=== PATIENT | female | born 1995 | race Caucasian/White ===

== ENCOUNTER 2018-11-03 19:37 | Inpatient (IN) ==
[2018-11-03] MEDS ORDERED: OXYTOCIN 30 UNITS/500 ML BAG IV PRN (21:11)
[2018-11-03 21:34] LABS: Hematocrit (blood only) 36.9 % (37-47); Mean Corpuscular Volume 95.1 fL (80-100); Mean Platelet Volume 10.7 fL (7.4-10.4); Platelet Count 226 K/uL (130-400); RDW Coefficient of Variation 14.5 % (11.5-14.5); RDW Standard Deviation 50.3 fL (36.4-46.3); Red Blood Count 3.88 M/uL (4.2-5.4)
[2018-11-03 21:37] LABS: Mean Corpuscular Hgb Conc 35.2 g/dL (32-36)
[2018-11-03] MEDS ORDERED: NALOXONE HCL 0.4 MG/1 ML VIAL/CARP IV PRN (23:09)
[2018-11-03] MEDS ORDERED: NALBUPHINE HCL INJ 10 MG/ML AMP IV PRN (23:09)
[2018-11-03] MEDS ORDERED: fentaNYL 2MCG/ML ROPIV 1.25MG/ML 100 ML BAG EPI PRN (23:09)
[2018-11-03] MEDS ORDERED: DiphenhydrAMINE HCL 50 MG/ML VIAL IV PRN (23:09)
[2018-11-03] MEDS ORDERED: NALOXONE HCL 1 MG in SODIUM CHLORIDE 0.9% 1000ML 1,000 ML IV PRN (23:09)
[2018-11-03] MEDS ORDERED: ePHEDrine sulfate 50 MG/ML AMP IV PRN (23:09)
[2018-11-03] MEDS ORDERED: ONDANSETRON INJ 2 MG/ML 2 ML VIAL IV PRN (23:09)
[2018-11-03] MEDS: LACTATED RINGER'S 1,000 ML IV PRN (23:10)
--- NOTE | 2018-11-03 23:11 | Anesthesiology Consultation ---
Date of Service November 03, 2018 Assessment & Plan (1) Encounter for pre-operative examination: Chart Review Chart Review: Patient NOT seen in Pre Admission Testing and Acceptable Risk for Labor Epidural Consults Requested none History Height/Weight Height: 5 ft 2 in Weight: 64.864 kg Allergies Allergy/AdvReac Type Severity Reaction Status Date / Time No Known Drug Allergies Allergy Verified 10/29/18 07:56 Medications Home Medications Medication Instructions Recorded Confirmed Last Taken vit-iron fum-folic ac 1 tab PO DAILY 11/03/18 11/03/18 11/03/18 08:00 [ Vitamin] Active Medications Generic Name Dose Route Start Last Admin Trade Name Freq PRN Reason Stop Dose Admin Lactated Ringer's 1,000 mls @ 125 mls/hr 11/03/18 21:11 11/03/18 23:10 Lr IV 11/05/18 21:10 999 mls/hr .Q8H PRN Administration L&D Protocol Protocol Past Medical History Medical History History of elective History of ovarian cyst History of varicella Exercise / Class Metabolic Activity II 4-5 Yardwork/Stairs/Walk up hill Past Surgical History Surgical History No history of previous surgery Past Anesthesia History No Hx of Anesthesia Complications and No Family Hx of Anesthesia Complications History of PONV No Hx of PONV and No Hx of Motion Sickness Social History Smoking Status: Never smoker Do You Dip or Chew Tobacco: No Hx Alcohol Use: No Hx Substance Use: No Physical Exam Vital Signs Last Vital Signs Temp 36.5 C 11/03/18 19:56 Pulse 89 11/03/18 19:53 Resp 18 11/03/18 19:56 BP 118/74 11/03/18 19:53 Testing Laboratory Results 11/03/18 21:21
[2018-11-03] MEDS ORDERED: ePHEDrine sulfate 50 MG/ML AMP ONE (23:12)
[2018-11-03] MEDS ORDERED: BUPIVACAINE 0.25% 30 ML VIAL ONE (23:12)
[2018-11-03] MEDS ORDERED: fentaNYL citrate 100 MCG/2 ML VIAL ONE (23:13)
[2018-11-03] MEDS ORDERED: fentaNYL 2MCG/ML ROPIV 1.25MG/ML 100 ML BAG EPI ONE (23:14)
--- NOTE | 2018-11-03 23:45 | History & Physical Report ---
Date of Service November 03, 2018 Assessment & Plan (1) Transverse lie of fetus: Long discussion of options. Discussed the possiblity of attempt at version. r/b/se of this discussed: bleeding, arom, nrfht, need for urgent c/s. Discussed proceeding with c/s. r/b/se discussed: bleeding, transfusion, damage to surrounding structures, need for further surgery, injury to baby. After discussion. Plan to proceed with version. Consent reviewed and signed. c/s consent also reviewed and signed. If successful, plan epidural and then controlled arom. Patient and agreeable. (2) Normal labor: History of Present Illness Chief Complaint: contractions Primary Care Provider: NO PCP Patient is a who presents to labor and delivery at 40 weeks with contractions. No lof/vb. +fm. Baby has been VERY active! has been uncomplicated. 37 week transfer from [facility] because her now works for [employer]--A+/ab-/pap nl/ri/rprnr/hepb-/hiv-/gc/ct-/28 week gtt nl/gbs neg. Allergies Allergy/AdvReac Type Severity Reaction Status Date / Time No Known Drug Allergies Allergy Verified 10/29/18 07:56 Home Medications Home Medications Medication Instructions Recorded Confirmed Type vit-iron fum-folic ac 1 tab PO DAILY 11/03/18 11/03/18 History [ Vitamin] Patient History Medical History History of elective History of ovarian cyst History of varicella Surgical History No history of previous surgery Social History Preferred Language: Persian Communication Ability: Effective Beliefs That Will Affect Care: None marital status: Current Living Situation: Spouse Feels Safe at Home: Yes Safety Concerns: Feels Safe At This Time Smoking Status: Never smoker Do You Dip or Chew Tobacco: No ; Hx Alcohol Use: No Hx Substance Use: No OB History g1--02/09, , 6#11oz 05/16--eab [employer] History none Physical Exam Constitutional: WD/WN, vitals as above Gastrointestinal (Abdomen): soft, gravid, nt baby appears transverse US--baby transverse, back up, head on left Genitourinary: cx--/-2 toco--not really picking up contractions efm--category one fetus Results & Data Vital Signs (Past 12 Hours) Vital Signs Temp Pulse Resp BP Pulse Ox 11/03/18 23:33 77 121/71 11/03/18 23:30 95 H 98 11/03/18 23:29 77 132/75 11/03/18 23:26 82 131/83 11/03/18 23:25 83 99 11/03/18 23:23 74 125/79 11/03/18 23:20 80 99 11/03/18 23:19 88 124/75 11/03/18 23:15 78 92 11/03/18 19:56 36.5 C 18 11/03/18 19:53 89 118/74
--- NOTE | 2018-11-03 23:48 | Post Operative Brief Note ---
PG Immediate Post Op with CF Date of Surgery November 03, 2018 Pre & Post Diagnosis pre-op: transverse lie post-op: same Procedure External cephalic version Surgeon Veronika Young MD, FACOG Cap Machine Operator none Estimated Blood Loss 0 Findings Consistent with Post-Op Diagnosis fetus transverse, back up, head to maternal left after procedure, fetus vertex. Fluids none Specimens Specimen Description: none Anesthesia Type None Disposition Disposition: L&D
--- NOTE | 2018-11-03 23:54 | Labor Progress Brief Note ---
Date of Service November 03, 2018 Subjective patient consents to attempt at ECV Assessment & Plan (1) Normal labor: now cephalic. Will get epidural and once comfortable, plan arom. fetus reassuring. Physical Exam Physical Exam: Cerix checked and was 4-5/100/-2, no presenting part. Patient placed flat in the bed with arms above head. Ultrasound confirmed transverse lie, back up, head on maternal left. I placed gentle, constant pressure on the head and on the bottom and the head was brought into the pelvis. FHT reassuring after the procedure. toco--now picking up q2-3 efm--130s wtih mod variability, accels present, no decels Results & Data Vital Signs (Past 12 Hours) Vital Signs Temp Pulse Resp BP Pulse Ox 11/03/18 23:47 69 98/54 L 11/03/18 23:45 71 99 11/03/18 23:44 69 100/57 L 11/03/18 23:41 67 105/59 L 11/03/18 23:40 77 100 11/03/18 23:38 71 101/58 L 11/03/18 23:35 75 110/66 100 11/03/18 23:33 77 121/71 11/03/18 23:30 95 H 98 11/03/18 23:29 77 132/75 11/03/18 23:26 82 131/83 11/03/18 23:25 83 99 11/03/18 23:23 74 125/79 11/03/18 23:20 80 99 11/03/18 23:19 88 124/75 11/03/18 23:15 78 92 11/03/18 19:56 36.5 C 18 11/03/18 19:53 89 118/74
[2018-11-04] MEDS: LACTATED RINGER'S 1,000 ML IV PRN ×3 (00:18→10:41)
--- NOTE | 2018-11-04 00:23 | Labor Progress Brief Note ---
Date of Service November 04, 2018 Subjective comfortable after epidural Assessment & Plan (1) Normal labor: arom. continue current management. anticipate . Physical Exam Constitutional: WD/WN, vitals as above Genitourinary: us confirms still cephalic cx--/-2 arom with fundal pressure for copious amounts of clear fluid toco--q2-4min efm--category one fse placed so can monitor and see if it moves in could be changing position. Results & Data Vital Signs (Past 12 Hours) Vital Signs Temp Pulse Resp BP Pulse Ox 11/04/18 00:17 65 112/63 11/04/18 00:15 72 98 11/04/18 00:14 81 118/72 11/04/18 00:11 81 124/70 11/04/18 00:10 96 H 99 11/04/18 00:08 70 109/64 11/04/18 00:05 81 108/66 99 11/04/18 00:02 80 106/65 11/04/18 00:00 77 99 11/03/18 23:59 73 110/61 11/03/18 23:56 77 106/59 L 11/03/18 23:55 76 99 11/03/18 23:53 79 99/64 L 11/03/18 23:50 70 103/59 L 100 11/03/18 23:47 69 98/54 L 11/03/18 23:45 71 99 11/03/18 23:44 69 100/57 L 11/03/18 23:41 67 105/59 L 11/03/18 23:40 77 100 11/03/18 23:38 71 101/58 L 11/03/18 23:35 75 110/66 100 11/03/18 23:33 77 121/71 11/03/18 23:30 95 H 98 11/03/18 23:29 77 132/75 11/03/18 23:26 82 131/83 11/03/18 23:25 83 99 11/03/18 23:23 74 125/79 11/03/18 23:20 80 99 11/03/18 23:19 88 124/75 11/03/18 23:15 78 92 11/03/18 19:56 36.5 C 18 11/03/18 19:53 89 118/74
[2018-11-04] MEDS ORDERED: OXYTOCIN 30 UNITS/500 ML BAG IV PRN ×2 (02:40→12:01)
--- NOTE | 2018-11-04 02:40 | Labor Progress Brief Note ---
Date of Service November 04, 2018 Subjective comfortable Assessment & Plan (1) Normal labor: augment with pitocin. fetus category one. Physical Exam Constitutional: WD/WN, vitals as above Genitourinary: cx--unchanged toco--q4-6 efm--130s with mod varibility, +scalp stim, + accels, no decels Results & Data Vital Signs (Past 12 Hours) Vital Signs Temp Pulse Resp BP Pulse Ox 11/04/18 02:35 80 111/59 L 99 11/04/18 02:32 71 109/56 L 11/04/18 02:30 89 105/58 L 99 11/04/18 02:26 67 114/63 11/04/18 02:25 103 H 99 11/04/18 02:23 66 114/63 11/04/18 02:20 65 113/63 98 11/04/18 02:18 68 110/54 L 11/04/18 02:15 74 98 11/04/18 02:14 83 112/58 L 11/04/18 02:11 70 115/61 11/04/18 02:10 81 98 11/04/18 02:08 65 114/63 11/04/18 02:05 77 107/59 L 99 11/04/18 02:02 89 106/56 L 11/04/18 02:00 36.6 C 67 99 11/04/18 01:59 74 107/55 L 11/04/18 01:56 72 104/55 L 11/04/18 01:55 75 99 11/04/18 01:53 85 99/58 L 11/04/18 01:50 95 H 105/57 L 100 11/04/18 01:47 63 113/63 11/04/18 01:45 73 99 11/04/18 01:44 63 110/60 11/04/18 01:41 72 104/56 L 11/04/18 01:40 68 99 11/04/18 01:38 64 107/56 L 11/04/18 01:35 64 106/59 L 99 11/04/18 01:32 60 109/60 11/04/18 01:30 65 99 11/04/18 01:29 66 106/55 L 11/04/18 01:26 81 109/55 L 11/04/18 01:25 69 99 11/04/18 01:23 75 103/59 L 11/04/18 01:20 79 99/55 L 99 11/04/18 01:17 74 104/58 L 11/04/18 01:15 71 99 11/04/18 01:14 64 102/53 L 11/04/18 01:11 57 L 106/55 L 11/04/18 01:10 74 100 11/04/18 01:08 85 99/60 L 11/04/18 01:05 69 99/54 L 100 11/04/18 01:02 72 100/54 L 11/04/18 01:00 76 98 11/04/18 00:59 64 102/51 L 11/04/18 00:56 81 113/60 11/04/18 00:55 63 99 11/04/18 00:53 71 106/57 L 11/04/18 00:50 79 110/60 99 11/04/18 00:47 78 109/67 11/04/18 00:45 81 99 11/04/18 00:44 62 109/60 11/04/18 00:41 83 109/66 11/04/18 00:40 36.6 C 91 H 99 11/04/18 00:38 61 112/63 11/04/18 00:35 89 111/64 99 11/04/18 00:32 71 106/61 11/04/18 00:30 70 99 11/04/18 00:29 70 112/64 11/04/18 00:26 63 111/62 11/04/18 00:25 65 99 11/04/18 00:23 64 117/64 11/04/18 00:20 72 115/65 99 11/04/18 00:17 65 112/63 11/04/18 00:15 72 98 11/04/18 00:14 81 118/72 11/04/18 00:11 81 124/70 11/04/18 00:10 96 H 99 11/04/18 00:08 70 109/64 11/04/18 00:05 81 108/66 99 11/04/18 00:02 80 106/65 11/04/18 00:00 77 99 11/03/18 23:59 73 110/61 11/03/18 23:56 77 106/59 L 11/03/18 23:55 76 99 08/08/19 23:53 79 99/64 L 11/03/18 23:50 70 103/59 L 100 11/03/18 23:47 69 98/54 L 11/03/18 23:45 71 99 11/03/18 23:44 69 100/57 L 11/03/18 23:41 67 105/59 L 11/03/18 23:40 77 100 11/03/18 23:38 71 101/58 L 11/03/18 23:35 75 110/66 100 11/03/18 23:33 77 121/71 11/03/18 23:30 95 H 98 11/03/18 23:29 77 132/75 11/03/18 23:26 82 131/83 11/03/18 23:25 83 99 11/03/18 23:23 74 125/79 11/03/18 23:20 80 99 11/03/18 23:19 88 124/75 11/03/18 23:15 78 92 11/03/18 19:56 36.5 C 18 11/03/18 19:53 89 118/74
--- NOTE | 2018-11-04 08:35 | Obstetrical Progress Note ---
Date of Service November 04, 2018 Assessment & Plan (1) Encounter for supervision of normal in multigravida in third trimester: (2) Transverse lie of fetus: cephalic on exam, pit at 16 iupc placed and elevated mvus. will back down on pit and see if variables improve, categ 2 tracing. concern would be that cx may not change given mvu's more than adeq now and cx has not changed. pt and spouse aware of plan and concerns. Subjective comfortable with epidural Physical Exam Constitutional: WD/WN, vitals as above Genitourinary: Manual OB Exam: + cervical dilation 5 cm, + cervical effacement 80% and + station -2 OB Exam Monitor Tracing: + scalp electrode used (140 moderate variability, variables, spont accels), + external uterine monitor used (q3), + intra-uterine pressure catheter used (placed) and + category II pit at 16 Results & Data Vital Signs (Past 12 Hours) Vital Signs Temp Pulse Resp BP Pulse Ox 11/04/18 08:30 73 99 11/04/18 08:25 93 H 100 11/04/18 08:22 82 125/77 11/04/18 08:20 78 100 11/04/18 08:15 73 99 11/04/18 08:10 79 98 11/04/18 08:08 70 105/61 11/04/18 08:05 71 98 11/04/18 08:00 73 99 11/04/18 07:59 20 11/04/18 07:55 66 99 11/04/18 07:52 66 105/56 L 11/04/18 07:50 65 99 11/04/18 07:45 69 99 11/04/18 07:40 67 98 11/04/18 07:39 68 100/53 L 11/04/18 07:35 68 99 11/04/18 07:33 97.9 F 20 11/04/18 07:30 60 99 11/04/18 07:25 69 98 11/04/18 07:24 72 110/60 11/04/18 07:20 69 98 11/04/18 07:15 80 98 11/04/18 07:10 78 98 11/04/18 07:08 75 130/55 L 11/04/18 07:05 76 98 11/04/18 07:00 75 99 11/04/18 06:55 83 99 08/09/19 06:52 76 120/67 11/04/18 06:50 78 99 11/04/18 06:45 90 98 11/04/18 06:40 86 99 11/04/18 06:37 83 120/68 11/04/18 06:35 84 100 11/04/18 06:30 92 H 99 11/04/18 06:25 91 H 99 11/04/18 06:22 76 117/66 11/04/18 06:20 78 100 11/04/18 06:15 77 100 11/04/18 06:10 80 100 11/04/18 06:07 88 111/65 11/04/18 06:05 74 99 11/04/18 06:00 78 100 11/04/18 05:55 82 99 11/04/18 05:52 78 112/65 11/04/18 05:50 70 99 11/04/18 05:45 74 100 11/04/18 05:40 75 100 11/04/18 05:38 82 121/73 11/04/18 05:35 76 100 11/04/18 05:30 81 100 11/04/18 05:25 76 100 11/04/18 05:22 78 112/67 11/04/18 05:20 71 99 11/04/18 05:15 96 H 99 11/04/18 05:10 72 99 11/04/18 05:08 88 112/66 11/04/18 05:05 90 99 11/04/18 05:00 93 H 99 11/04/18 04:55 83 99 11/04/18 04:52 67 115/66 11/04/18 04:50 69 99 11/04/18 04:45 77 100 11/04/18 04:40 81 99 11/04/18 04:37 83 107/61 11/04/18 04:35 85 99 11/04/18 04:30 101 H 98 11/04/18 04:25 92 H 99 11/04/18 04:23 74 106/58 L 11/04/18 04:20 72 99 11/04/18 04:15 81 99 11/04/18 04:10 69 99 11/04/18 04:07 68 119/68 11/04/18 04:05 67 100 11/04/18 04:00 78 99 11/04/18 03:55 68 98 11/04/18 03:52 89 111/64 11/04/18 03:50 70 99 11/04/18 03:45 68 99 11/04/18 03:40 72 99 11/04/18 03:37 71 105/64 11/04/18 03:35 83 99 11/04/18 03:30 98.6 F 84 99 11/04/18 03:25 70 99 11/04/18 03:22 70 110/69 11/04/18 03:20 77 99 11/04/18 03:15 73 99 11/04/18 03:10 90 99 11/04/18 03:07 75 117/68 11/04/18 03:05 68 100 11/04/18 03:00 73 100 11/04/18 02:55 94 H 99 11/04/18 02:53 75 108/61 11/04/18 02:50 88 100 11/04/18 02:45 73 100 11/04/18 02:40 87 100 11/04/18 02:35 80 111/59 L 99 11/04/18 02:32 71 109/56 L 11/04/18 02:30 89 105/58 L 99 11/04/18 02:26 67 114/63 11/04/18 02:25 103 H 99 11/04/18 02:23 66 114/63 11/04/18 02:20 65 113/63 98 11/04/18 02:18 68 110/54 L 11/04/18 02:15 74 98 11/04/18 02:14 83 112/58 L 11/04/18 02:11 70 115/61 11/04/18 02:10 81 98 11/04/18 02:08 65 114/63 11/04/18 02:05 77 107/59 L 99 11/04/18 02:02 89 106/56 L 11/04/18 02:00 97.9 F 67 99 11/04/18 01:59 74 107/55 L 11/04/18 01:56 72 104/55 L 11/04/18 01:55 75 99 11/04/18 01:53 85 99/58 L 11/04/18 01:50 95 H 105/57 L 100 11/04/18 01:47 63 113/63 11/04/18 01:45 73 99 11/04/18 01:44 63 110/60 11/04/18 01:41 72 104/56 L 11/04/18 01:40 68 99 11/04/18 01:38 64 107/56 L 11/04/18 01:35 64 106/59 L 99 11/04/18 01:32 60 109/60 11/04/18 01:30 65 99 11/04/18 01:29 66 106/55 L 11/04/18 01:26 81 109/55 L 11/04/18 01:25 69 99 11/04/18 01:23 75 103/59 L 11/04/18 01:20 79 99/55 L 99 11/04/18 01:17 74 104/58 L 11/04/18 01:15 71 99 11/04/18 01:14 64 102/53 L 11/04/18 01:11 57 L 106/55 L 11/04/18 01:10 74 100 11/04/18 01:08 85 99/60 L 11/04/18 01:05 69 99/54 L 100 11/04/18 01:02 72 100/54 L 11/04/18 01:00 76 98 11/04/18 00:59 64 102/51 L 11/04/18 00:56 81 113/60 11/04/18 00:55 63 99 11/04/18 00:53 71 106/57 L 11/04/18 00:50 79 110/60 99 11/04/18 00:47 78 109/67 11/04/18 00:45 81 99 11/04/18 00:44 62 109/60 11/04/18 00:41 83 109/66 11/04/18 00:40 97.9 F 91 H 99 11/04/18 00:38 61 112/63 11/04/18 00:35 89 111/64 99 11/04/18 00:32 71 106/61 11/04/18 00:30 70 99 11/04/18 00:29 70 112/64 11/04/18 00:26 63 111/62 11/04/18 00:25 65 99 11/04/18 00:23 64 117/64 11/04/18 00:20 72 115/65 99 11/04/18 00:17 65 112/63 11/04/18 00:15 72 98 11/04/18 00:14 81 118/72 11/04/18 00:11 81 124/70 11/04/18 00:10 96 H 99 11/04/18 00:08 70 109/64 11/04/18 00:05 81 108/66 99 11/04/18 00:02 80 106/65 11/04/18 00:00 77 99 11/03/18 23:59 73 110/61 11/03/18 23:56 77 106/59 L 11/03/18 23:55 76 99 11/03/18 23:53 79 99/64 L 11/03/18 23:50 70 103/59 L 100 11/03/18 23:47 69 98/54 L 11/03/18 23:45 71 99 11/03/18 23:44 69 100/57 L 11/03/18 23:41 67 105/59 L 11/03/18 23:40 77 100 11/03/18 23:38 71 101/58 L 11/03/18 23:35 75 110/66 100 11/03/18 23:33 77 121/71 11/03/18 23:30 95 H 98 11/03/18 23:29 77 132/75 11/03/18 23:26 82 131/83 11/03/18 23:25 83 99 11/03/18 23:23 74 125/79 11/03/18 23:20 80 99 11/03/18 23:19 88 124/75 11/03/18 23:15 78 92 PG Care Time/CCT Total # of Minutes Spent Total Time Spent with Patient: Total time spent is greater than 50% in coordination of care (as documented) at patient's floor/unit and/or counseling patient:
--- NOTE | 2018-11-04 10:42 | Labor Progress Brief Note ---
Date of Service November 04, 2018 Subjective patient comfortable. Assessment & Plan (1) Encounter for supervision of normal in multigravida in third trimester: will begin 2nd stage soon. pit at 2. categ 2 fhts Physical Exam Constitutional: WD/WN, vitals as above Genitourinary: Manual OB Exam: + cervical dilation 9 cm, + cervical effacement 100% and + station + 1 OB Exam Monitor Tracing: + scalp electrode used (140 mod variability, variable decels), + external uterine monitor used (q3) and + category II Results & Data Vital Signs (Past 12 Hours) Vital Signs Temp Pulse Resp BP Pulse Ox 11/04/18 10:35 84 100 11/04/18 10:30 84 99 11/04/18 10:25 94 H 97 11/04/18 10:24 107 H 128/85 11/04/18 10:20 73 98 11/04/18 10:15 101 H 99 11/04/18 10:10 76 98 11/04/18 10:08 71 123/74 11/04/18 10:05 71 98 11/04/18 10:00 76 97 11/04/18 09:55 81 97 11/04/18 09:52 102 H 111/68 11/04/18 09:51 99.0 F 20 11/04/18 09:50 75 99 11/04/18 09:45 95 H 99 11/04/18 09:40 86 98 11/04/18 09:38 88 108/65 11/04/18 09:35 82 98 11/04/18 09:30 73 98 11/04/18 09:29 20 11/04/18 09:25 90 99 11/04/18 09:22 81 112/70 11/04/18 09:20 88 99 11/04/18 09:15 88 99 11/04/18 09:10 70 98 11/04/18 09:07 93 H 106/66 11/04/18 09:05 71 100 11/04/18 09:00 84 99 11/04/18 08:59 20 11/04/18 08:55 75 100 11/04/18 08:52 68 121/70 11/04/18 08:50 68 100 11/04/18 08:45 84 100 11/04/18 08:40 82 100 11/04/18 08:38 102 H 147/91 H 11/04/18 08:35 69 100 11/04/18 08:30 73 20 99 11/04/18 08:25 93 H 100 11/04/18 08:22 82 125/77 11/04/18 08:20 78 100 11/04/18 08:15 73 99 11/04/18 08:10 79 98 11/04/18 08:08 70 105/61 11/04/18 08:05 71 98 11/04/18 08:00 73 99 11/04/18 07:59 20 11/04/18 07:55 66 99 11/04/18 07:52 66 105/56 L 11/04/18 07:50 65 99 11/04/18 07:45 69 99 11/04/18 07:40 67 98 11/04/18 07:39 68 100/53 L 11/04/18 07:35 68 99 11/04/18 07:33 97.9 F 20 11/04/18 07:30 60 99 11/04/18 07:25 69 98 11/04/18 07:24 72 110/60 11/04/18 07:20 69 98 11/04/18 07:15 80 98 11/04/18 07:10 78 98 11/04/18 07:08 75 130/55 L 11/04/18 07:05 76 98 11/04/18 07:00 75 99 11/04/18 06:55 83 99 11/04/18 06:52 76 120/67 11/04/18 06:50 78 99 11/04/18 06:45 90 98 11/04/18 06:40 86 99 11/04/18 06:37 83 120/68 11/04/18 06:35 84 100 11/04/18 06:30 92 H 99 11/04/18 06:25 91 H 99 11/04/18 06:22 76 117/66 11/04/18 06:20 78 100 11/04/18 06:15 77 100 11/04/18 06:10 80 100 11/04/18 06:07 88 111/65 11/04/18 06:05 74 99 11/04/18 06:00 78 100 11/04/18 05:55 82 99 11/04/18 05:52 78 112/65 11/04/18 05:50 70 99 11/04/18 05:45 74 100 11/04/18 05:40 75 100 11/04/18 05:38 82 121/73 11/04/18 05:35 76 100 11/04/18 05:30 81 100 11/04/18 05:25 76 100 11/04/18 05:22 78 112/67 11/04/18 05:20 71 99 11/04/18 05:15 96 H 99 11/04/18 05:10 72 99 11/04/18 05:08 88 112/66 11/04/18 05:05 90 99 11/04/18 05:00 93 H 99 11/04/18 04:55 83 99 11/04/18 04:52 67 115/66 11/04/18 04:50 69 99 11/04/18 04:45 77 100 11/04/18 04:40 81 99 11/04/18 04:37 83 107/61 11/04/18 04:35 85 99 11/04/18 04:30 101 H 98 11/04/18 04:25 92 H 99 11/04/18 04:23 74 106/58 L 11/04/18 04:20 72 99 11/04/18 04:15 81 99 11/04/18 04:10 69 99 11/04/18 04:07 68 119/68 11/04/18 04:05 67 100 11/04/18 04:00 78 99 11/04/18 03:55 68 98 11/04/18 03:52 89 111/64 11/04/18 03:50 70 99 11/04/18 03:45 68 99 11/04/18 03:40 72 99 11/04/18 03:37 71 105/64 11/04/18 03:35 83 99 11/04/18 03:30 98.6 F 84 99 11/04/18 03:25 70 99 11/04/18 03:22 70 110/69 11/04/18 03:20 77 99 11/04/18 03:15 73 99 11/04/18 03:10 90 99 11/04/18 03:07 75 117/68 11/04/18 03:05 68 100 11/04/18 03:00 73 100 11/04/18 02:55 94 H 99 11/04/18 02:53 75 108/61 11/04/18 02:50 88 100 11/04/18 02:45 73 100 11/04/18 02:40 87 100 11/04/18 02:35 80 111/59 L 99 11/04/18 02:32 71 109/56 L 11/04/18 02:30 89 105/58 L 99 11/04/18 02:26 67 114/63 11/04/18 02:25 103 H 99 11/04/18 02:23 66 114/63 11/04/18 02:20 65 113/63 98 11/04/18 02:18 68 110/54 L 11/04/18 02:15 74 98 11/04/18 02:14 83 112/58 L 11/04/18 02:11 70 115/61 11/04/18 02:10 81 98 11/04/18 02:08 65 114/63 11/04/18 02:05 77 107/59 L 99 11/04/18 02:02 89 106/56 L 11/04/18 02:00 97.9 F 67 99 11/04/18 01:59 74 107/55 L 11/04/18 01:56 72 104/55 L 11/04/18 01:55 75 99 11/04/18 01:53 85 99/58 L 11/04/18 01:50 95 H 105/57 L 100 11/04/18 01:47 63 113/63 11/04/18 01:45 73 99 11/04/18 01:44 63 110/60 11/04/18 01:41 72 104/56 L 11/04/18 01:40 68 99 11/04/18 01:38 64 107/56 L 11/04/18 01:35 64 106/59 L 99 11/04/18 01:32 60 109/60 11/04/18 01:30 65 99 11/04/18 01:29 66 106/55 L 11/04/18 01:26 81 109/55 L 11/04/18 01:25 69 99 11/04/18 01:23 75 103/59 L 11/04/18 01:20 79 99/55 L 99 11/04/18 01:17 74 104/58 L 11/04/18 01:15 71 99 11/04/18 01:14 64 102/53 L 11/04/18 01:11 57 L 106/55 L 11/04/18 01:10 74 100 11/04/18 01:08 85 99/60 L 11/04/18 01:05 69 99/54 L 100 11/04/18 01:02 72 100/54 L 11/04/18 01:00 76 98 11/04/18 00:59 64 102/51 L 11/04/18 00:56 81 113/60 11/04/18 00:55 63 99 11/04/18 00:53 71 106/57 L 11/04/18 00:50 79 110/60 99 11/04/18 00:47 78 109/67 11/04/18 00:45 81 99 11/04/18 00:44 62 109/60 11/04/18 00:41 83 109/66 11/04/18 00:40 97.9 F 91 H 99 11/04/18 00:38 61 112/63 11/04/18 00:35 89 111/64 99 11/04/18 00:32 71 106/61 11/04/18 00:30 70 99 11/04/18 00:29 70 112/64 11/04/18 00:26 63 111/62 11/04/18 00:25 65 99 11/04/18 00:23 64 117/64 11/04/18 00:20 72 115/65 99 11/04/18 00:17 65 112/63 11/04/18 00:15 72 98 11/04/18 00:14 81 118/72 11/04/18 00:11 81 124/70 11/04/18 00:10 96 H 99 11/04/18 00:08 70 109/64 11/04/18 00:05 81 108/66 99 11/04/18 00:02 80 106/65 11/04/18 00:00 77 99 11/03/18 23:59 73 110/61 11/03/18 23:56 77 106/59 L 11/03/18 23:55 76 99 11/03/18 23:53 79 99/64 L 11/03/18 23:50 70 103/59 L 100 11/03/18 23:47 69 98/54 L 11/03/18 23:45 71 99 11/03/18 23:44 69 100/57 L 11/03/18 23:41 67 105/59 L 11/03/18 23:40 77 100 11/03/18 23:38 71 101/58 L 11/03/18 23:35 75 110/66 100 11/03/18 23:33 77 121/71 11/03/18 23:30 95 H 98 11/03/18 23:29 77 132/75 11/03/18 23:26 82 131/83 11/03/18 23:25 83 99 11/03/18 23:23 74 125/79 11/03/18 23:20 80 99 11/03/18 23:19 88 124/75 11/03/18 23:15 78 92
--- NOTE | 2018-11-04 10:50 | Labor Progress Brief Note ---
Date of Service November 04, 2018 Subjective feels back pain Assessment & Plan (1) Encounter for supervision of normal in multigravida in third trimester: 2nd stage. categ 2 fhts. pt pushing effectively. Physical Exam Constitutional: WD/WN, vitals as above Genitourinary: Manual OB Exam: + cervical dilation 10 cm, + cervical effacement 100% and + station + 3 OB Exam Monitor Tracing: + scalp electrode used (140 mod variability variable decels), + external uterine monitor used (q2-3) and + category II pit now off Results & Data Vital Signs (Past 12 Hours) Vital Signs Temp Pulse Resp BP Pulse Ox 11/04/18 10:45 94 H 100 11/04/18 10:40 88 128/75 100 11/04/18 10:35 84 100 11/04/18 10:30 84 99 11/04/18 10:25 94 H 97 11/04/18 10:24 107 H 128/85 11/04/18 10:20 73 98 11/04/18 10:15 101 H 99 11/04/18 10:10 76 98 11/04/18 10:08 71 123/74 11/04/18 10:05 71 98 11/04/18 10:00 76 97 11/04/18 09:55 81 97 11/04/18 09:52 102 H 111/68 11/04/18 09:51 99.0 F 20 11/04/18 09:50 75 99 11/04/18 09:45 95 H 99 11/04/18 09:40 86 98 11/04/18 09:38 88 108/65 11/04/18 09:35 82 98 11/04/18 09:30 73 98 11/04/18 09:29 20 11/04/18 09:25 90 99 11/04/18 09:22 81 112/70 11/04/18 09:20 88 99 11/04/18 09:15 88 99 11/04/18 09:10 70 98 11/04/18 09:07 93 H 106/66 11/04/18 09:05 71 100 11/04/18 09:00 84 99 11/04/18 08:59 20 11/04/18 08:55 75 100 11/04/18 08:52 68 121/70 11/04/18 08:50 68 100 11/04/18 08:45 84 100 11/04/18 08:40 82 100 11/04/18 08:38 102 H 147/91 H 11/04/18 08:35 69 100 11/04/18 08:30 73 20 99 11/04/18 08:25 93 H 100 11/04/18 08:22 82 125/77 11/04/18 08:20 78 100 11/04/18 08:15 73 99 11/04/18 08:10 79 98 11/04/18 08:08 70 105/61 11/04/18 08:05 71 98 11/04/18 08:00 73 99 11/04/18 07:59 20 11/04/18 07:55 66 99 11/04/18 07:52 66 105/56 L 11/04/18 07:50 65 99 11/04/18 07:45 69 99 11/04/18 07:40 67 98 11/04/18 07:39 68 100/53 L 11/04/18 07:35 68 99 11/04/18 07:33 97.9 F 20 11/04/18 07:30 60 99 11/04/18 07:25 69 98 11/04/18 07:24 72 110/60 11/04/18 07:20 69 98 11/04/18 07:15 80 98 11/04/18 07:10 78 98 11/04/18 07:08 75 130/55 L 11/04/18 07:05 76 98 11/04/18 07:00 75 99 11/04/18 06:55 83 99 11/04/18 06:52 76 120/67 11/04/18 06:50 78 99 11/04/18 06:45 90 98 11/04/18 06:40 86 99 11/04/18 06:37 83 120/68 11/04/18 06:35 84 100 11/04/18 06:30 92 H 99 11/04/18 06:25 91 H 99 11/04/18 06:22 76 117/66 11/04/18 06:20 78 100 11/04/18 06:15 77 100 11/04/18 06:10 80 100 11/04/18 06:07 88 111/65 11/04/18 06:05 74 99 11/04/18 06:00 78 100 08/09/19 05:55 82 99 11/04/18 05:52 78 112/65 11/04/18 05:50 70 99 11/04/18 05:45 74 100 11/04/18 05:40 75 100 11/04/18 05:38 82 121/73 11/04/18 05:35 76 100 11/04/18 05:30 81 100 11/04/18 05:25 76 100 11/04/18 05:22 78 112/67 11/04/18 05:20 71 99 11/04/18 05:15 96 H 99 11/04/18 05:10 72 99 11/04/18 05:08 88 112/66 11/04/18 05:05 90 99 11/04/18 05:00 93 H 99 11/04/18 04:55 83 99 11/04/18 04:52 67 115/66 11/04/18 04:50 69 99 11/04/18 04:45 77 100 11/04/18 04:40 81 99 11/04/18 04:37 83 107/61 11/04/18 04:35 85 99 11/04/18 04:30 101 H 98 11/04/18 04:25 92 H 99 11/04/18 04:23 74 106/58 L 11/04/18 04:20 72 99 11/04/18 04:15 81 99 11/04/18 04:10 69 99 11/04/18 04:07 68 119/68 11/04/18 04:05 67 100 11/04/18 04:00 78 99 11/04/18 03:55 68 98 11/04/18 03:52 89 111/64 11/04/18 03:50 70 99 11/04/18 03:45 68 99 11/04/18 03:40 72 99 11/04/18 03:37 71 105/64 11/04/18 03:35 83 99 11/04/18 03:30 98.6 F 84 99 11/04/18 03:25 70 99 11/04/18 03:22 70 110/69 11/04/18 03:20 77 99 11/04/18 03:15 73 99 11/04/18 03:10 90 99 11/04/18 03:07 75 117/68 11/04/18 03:05 68 100 11/04/18 03:00 73 100 11/04/18 02:55 94 H 99 11/04/18 02:53 75 108/61 11/04/18 02:50 88 100 11/04/18 02:45 73 100 11/04/18 02:40 87 100 11/04/18 02:35 80 111/59 L 99 11/04/18 02:32 71 109/56 L 11/04/18 02:30 89 105/58 L 99 11/04/18 02:26 67 114/63 11/04/18 02:25 103 H 99 11/04/18 02:23 66 114/63 11/04/18 02:20 65 113/63 98 11/04/18 02:18 68 110/54 L 11/04/18 02:15 74 98 11/04/18 02:14 83 112/58 L 11/04/18 02:11 70 115/61 11/04/18 02:10 81 98 11/04/18 02:08 65 114/63 11/04/18 02:05 77 107/59 L 99 11/04/18 02:02 89 106/56 L 11/04/18 02:00 97.9 F 67 99 11/04/18 01:59 74 107/55 L 11/04/18 01:56 72 104/55 L 11/04/18 01:55 75 99 11/04/18 01:53 85 99/58 L 11/04/18 01:50 95 H 105/57 L 100 11/04/18 01:47 63 113/63 11/04/18 01:45 73 99 11/04/18 01:44 63 110/60 11/04/18 01:41 72 104/56 L 11/04/18 01:40 68 99 11/04/18 01:38 64 107/56 L 11/04/18 01:35 64 106/59 L 99 11/04/18 01:32 60 109/60 11/04/18 01:30 65 99 11/04/18 01:29 66 106/55 L 11/04/18 01:26 81 109/55 L 11/04/18 01:25 69 99 11/04/18 01:23 75 103/59 L 11/04/18 01:20 79 99/55 L 99 11/04/18 01:17 74 104/58 L 11/04/18 01:15 71 99 11/04/18 01:14 64 102/53 L 11/04/18 01:11 57 L 106/55 L 11/04/18 01:10 74 100 11/04/18 01:08 85 99/60 L 11/04/18 01:05 69 99/54 L 100 11/04/18 01:02 72 100/54 L 11/04/18 01:00 76 98 11/04/18 00:59 64 102/51 L 11/04/18 00:56 81 113/60 11/04/18 00:55 63 99 11/04/18 00:53 71 106/57 L 11/04/18 00:50 79 110/60 99 11/04/18 00:47 78 109/67 11/04/18 00:45 81 99 11/04/18 00:44 62 109/60 11/04/18 00:41 83 109/66 11/04/18 00:40 97.9 F 91 H 99 11/04/18 00:38 61 112/63 11/04/18 00:35 89 111/64 99 11/04/18 00:32 71 106/61 11/04/18 00:30 70 99 11/04/18 00:29 70 112/64 11/04/18 00:26 63 111/62 11/04/18 00:25 65 99 11/04/18 00:23 64 117/64 11/04/18 00:20 72 115/65 99 11/04/18 00:17 65 112/63 11/04/18 00:15 72 98 11/04/18 00:14 81 118/72 11/04/18 00:11 81 124/70 11/04/18 00:10 96 H 99 11/04/18 00:08 70 109/64 11/04/18 00:05 81 108/66 99 11/04/18 00:02 80 106/65 11/04/18 00:00 77 99 11/03/18 23:59 73 110/61 11/03/18 23:56 77 106/59 L 11/03/18 23:55 76 99 11/03/18 23:53 79 99/64 L 11/03/18 23:50 70 103/59 L 100 11/03/18 23:47 69 98/54 L 11/03/18 23:45 71 99 11/03/18 23:44 69 100/57 L 11/03/18 23:41 67 105/59 L 11/03/18 23:40 77 100 11/03/18 23:38 71 101/58 L 11/03/18 23:35 75 110/66 100 11/03/18 23:33 77 121/71 11/03/18 23:30 95 H 98 11/03/18 23:29 77 132/75 11/03/18 23:26 82 131/83 11/03/18 23:25 83 99 11/03/18 23:23 74 125/79 11/03/18 23:20 80 99 11/03/18 23:19 88 124/75 11/03/18 23:15 78 92
--- NOTE | 2018-11-04 12:00 | Delivery Summary ---
Vaginal Delivery Summary Date of Service November 04, 2018 The patient dilated to complete and pushed to deliver viable male infant apgars 8,9 via over intact perineum. Mouth and nose bulb suctioned at perineum. Nuchal cord noted and delivered through. Shoulders and body delivered with ease. vigorous and crying at . Cord clamped at 30 seconds of life and infant to maternal abdomen where cord was doubly clamped and cut. Placenta delivered spontaneously and intact, 3VC. Hemostasis achieved with dilute pitocin and uterine massage. Bladder drained under sterile conditions for 50cc. Cervix and sulci intact. EBL 300 cc. Mother and baby stable in recovery.
[2018-11-04] MEDS ORDERED: HYDROCORTISONE ACETATE 25 MG SUPP PR PRN (12:01)
[2018-11-04] MEDS ORDERED: BENZOCAINE 20% AER SPR 82.5 GM CAN EXT PRN (12:01)
[2018-11-04] MEDS ORDERED: SUPERCREAM 0.870% 15 GM JAR EXT PRN (12:01)
[2018-11-04] MEDS ORDERED: DIPHTHERIA/TETANUS/PERTUSSIS 0.5 ML SYR/VIAL IM ONE (12:01)
[2018-11-04] MEDS ORDERED: ACETAMINOPHEN 325 MG TAB PO PRN (12:01)
[2018-11-04] MEDS ORDERED: OXYCODONE/ACETAMINOPHEN 5mg/325mg TAB PO PRN (12:01)
[2018-11-04] MEDS ORDERED: OXYTOCIN 20 UNITS in LACTATED RINGER'S 1,000 ML IV SCH (12:15)
--- NOTE | 2018-11-04 13:01 | Anesthesia Procedure Note ---
Date of Service November 04, 2018 Anesthesia Post Epidural Note Vital Signs Vital Signs: Temp Pulse Resp BP Pulse Ox 37.2 C 90 20 115/65 96 11/04/18 09:51 11/04/18 12:59 11/04/18 12:59 11/04/18 12:59 11/04/18 11:40 Pain Intensity Abdomen: Pain Intensity: 0 Notes Mental Status: alert / awake / arousable and participated in evaluation Nausea / Vomiting: adequately controlled Pain: adequately controlled Airway Patency, RR, SpO2: stable & adequate BP & HR: stable & adequate Hydration State: stable & adequate Neuraxial Anesthesia: was administered and sensory block is resolving Anesthetic Complications: no major complications apparent and Pt Satisfied with anesthetic care Epidural: Removed without complications and With tip intact
[2018-11-04] MEDS: IBUPROFEN 600 MG TAB PO PRN (16:36)
[2018-11-04] MEDS: DOCUSATE SODIUM 100 MG CAP PO SCH (20:34)
[2018-11-05] MEDS: IBUPROFEN 600 MG TAB PO PRN ×3 (04:43→13:30)
--- NOTE | 2018-11-05 07:59 | Obstetrical Progress Note ---
Date of Service <Imelda Peguero MD - Last Filed: 11/05/18 07:59> November 05, 2018 Assessment & Plan <Imelda Peguero MD - Last Filed: 11/05/18 07:59> (1) Transverse lie of fetus: (2) Encounter for care and examination after delivery: PPD1 after on 11/04. complicated by transverse lie which required external version and adjustment to be head down. Improving well this morning, ambulating, tolerating oral diet. Pain managed with tylenol and motrin. Discussed discharge instructions and signs to look for, discharge later today. Follow up in [address] Faulkner. Subjective <Imelda Peguero MD - Last Filed: 11/05/18 07:59> Ambulation: ambulating normally Voiding: no voiding problems Passing Gas:: Yes Diet Tolerance:: regular diet Lochia:: Small Feeding Type:: breast feeding Current Pain Level(1-10): 0 passing gas and moving bowels. Constitutional: + fatigue; no fever and no chills Respiratory: no cough and no dyspnea No shortness of breath Cardiovascular: no chest pain, no syncope, no edema and no calf pain Breast: no breast pain Gastrointestinal: + cramping; no abdominal pain, no nausea, no vomiting, no constipation and no diarrhea/loose stools Genitourinary (female): no dysuria and no difficulty urinating Neurologic: no headache(s) Physical Exam <Imelda Peguero MD - Last Filed: 11/05/18 07:59> Constitutional well developed and well nourished Respiratory normal respiratory effort; no respiratory distress, no labored breathing and no cough Auscultation: no crackles, no rales, no rhonchi and no wheezes Cardiovascular Rate/Rhythm: regular rate and regular rhythm Heart Sounds: no gallop, no murmur and no cardiac rub Extremities: + pedal edema Gastrointestinal (Abdomen) Inspection/Auscultation: + abdomen distended and normal bowel sounds Percussion/Palpation: + abdomen tender and abdomen soft; no guarding Genitourinary Uterus firm, palpable below umbilicus, some tenderness to palpation. Results & Data <Imelda Peguero MD - Last Filed: 11/05/18 07:59> Vital Signs (Past 12 Hours) Vital Signs Temp Pulse Resp BP Pulse Ox 08/10/19 04:46 36.3 C L 79 18 97/59 L 97 11/05/18 01:14 36.3 C L 79 14 94/60 L 97 11/04/18 20:30 36.7 C 81 20 96/58 L <Jaleel Faulkner MD - Last Filed: 11/05/18 08:45> Co-Signing Physician Notes Patient seen and evaluated and agree with the above findings and plan. will plan for d/c late afternoon.
[2018-11-05] MEDS ORDERED: PRENATAL VITAMIN 1 TAB PO SCH (08:00)
[2018-11-05] MEDS: DOCUSATE SODIUM 100 MG CAP PO SCH (09:26)
== END 2018-11-05 14:30 | disposition home or self-care (01) | DRG 807 ==
LOC: OPB 19:37 → 4S1 19:42 → 4S2 11-04 15:42